=== PATIENT | male | born 1995 | race Caucasian/White ===

== ENCOUNTER 2017-07-01 17:40 | Emergency (ER) | payer OTHER ==
[2017-07-01 17:48] VITALS: BP 140/81
--- NOTE | 2017-07-01 18:18 | ED Physician Documentation ---
PD HPI URI - Stated complaint Stated Complaint: COUGH/CHILLS - Chief complaint Chief Complaint: Fever - History obtained from History obtained from: Patient - History of Present Illness Timing - onset: Other (2 days of fever, chills, myalgias and cough.) Review of Systems Constitutional: reports: Fever, Chills, Myalgias Nose: denies: Rhinorrhea / runny nose, Congestion Cardiac: denies: Chest pain / pressure, Palpitations Respiratory: reports: Dyspnea, Cough GI: denies: Abdominal Pain PD PAST MEDICAL HISTORY - Past Medical History Past Medical History: No - Past Surgical History Past Surgical History: Yes HEENT: Myringotomy (tubes) - Present Medications Home Medications: Ambulatory Orders Medication Instructions Recorded Confirmed Azithromycin [Zithromax] 250 mg PO DAILY #4 tablet 07/01/17 - Allergies Allergies/Adverse Reactions: Allergies Allergy/AdvReac Type Severity Reaction Status Date / Time No Known Drug Allergies Allergy Verified 07/01/17 17:48 - Social History Does the pt smoke?: Yes Smoking Status: Current every day smoker Does the pt drink ETOH?: Yes ETOH Use: Beer, Liquor Does the pt have substance abuse?: No - Immunizations Immunizations are current?: Yes - POLST Patient has POLST: No PD ED PE NORMAL - Vitals Vital signs reviewed: Yes - General General: Alert and oriented X 3, No acute distress, Well developed/nourished - HEENT HEENT: Other (Right TM red) - Neck Neck: Supple, no meningeal sign, No bony TTP - Cardiac Cardiac: RRR, No murmur - Respiratory Respiratory: No respiratory distress, Other (mild crackles both bases.) - Abdomen Abdomen: Non tender - Neuro Neuro: Alert and oriented X 3, Normal speech - Psych Psych: Normal mood, Normal affect Results - Vitals Vitals: Vital Signs - 24 hr 07/01/17 17:44 Temperature 38.7 C H Heart Rate 115 H Respiratory 18 Rate Blood Pressure 140/81 H O2 Saturation 98 Oxygen O2 Source Room air - Labs Labs: Laboratory Tests 07/01/17 18:22 Influenza A (Rapid) Negative Influenza B (Rapid) Negative - Rads (name of study) 2v chest Radiology: EMP read contemporaneously (Probable right greater than left basilar pneumonia.) Departure - Departure Disposition: 01 Home, Self Care Clinical Impression: Pneumonia Qualifiers: Pneumonia type: due to unspecified organism Laterality: right Lung location: middle lobe of lung Qualified Code(s): J18.1 - Lobar pneumonia, unspecified organism Condition: Good Record reviewed to determine appropriate education?: Yes Instructions: Pneumonia Dc Prescriptions: Azithromycin [Zithromax] 250 mg PO DAILY #4 tablet Comments: Call your doctor to arrange a follow-up appointment, make the next available appointment. In the interim, return anytime if worse or if new symptoms develop. Your blood pressure was elevated today on check into the emergency department. This does not mean that you have hypertension, it is a common phenomenon to come to the emergency department and have elevated blood pressure. I recommend that you see your primary care physician within the week to have it rechecked when you are feeling better. Forms: Activity restrictions Discharge Date/Time: 07/01/17 19:25
[2017-07-01] MEDS ORDERED: IBUPROFEN 800 MG TABLET PO STA (18:19)
[2017-07-01] MEDS ORDERED: AZITHROMYCIN 250 MG TABLET PO STA (19:19)
--- NOTE | 2017-07-01 19:25 | XRAY Report ---
EXAM: CHEST RADIOGRAPHY EXAM DATE: 07/01/2017 07:19 PM. CLINICAL HISTORY: Cough fevre. COMPARISON: None. TECHNIQUE: 2 views. FINDINGS: Lungs/Pleura: Mild hazy right greater than left basilar opacities could reflect basilar pneumonia. Up per lungs are clear. No pleural effusion or pneumothorax. Mediastinum: Heart and mediastinal contours are unremarkable. Other: None. IMPRESSION: 1. Probable right greater than left basilar pneumonia. [facility] Referring Provider Line: [phone] SITE ID: [id number]
== END 2017-07-01 19:25 | disposition home or self-care (01) ==
LOC: ED 17:40
DX: J18.9 Pneumonia, unspecified organism (principal); F17.200 Nicotine dependence, unspecified, uncomplicated; R03.0 Elevated blood-pressure reading, without diagnosis of hypertension
CPT/HCPCS: 71046; 87275; 87276; 99283; A9270